=== PATIENT | male | born 1990 | race Caucasian/White ===

== ENCOUNTER 2022-07-06 09:29 | Emergency (ER) | payer SELFPAY ==
[2022-07-06 09:51] VITALS: BP 157/91; PULSE 70; RESP 18; TEMP 36.8; O2SAT 100; BMI 32.5
[2022-07-06] MEDS: Lidocaine HCl 2% PF/Epi 1:200 20 ML VIAL INFILTRATI (10:40)
[2022-07-06] MEDS: LORazepam 1 MG TABLET PO (11:07)
--- NOTE | 2022-07-06 12:34 | ED.WOUNDLAC ---
HPI - Wound/Laceration General Chief Complaint: Wound/Laceration Stated Complaint: lip laceration non work related Time Seen by Provider: 07/06/22 09:46 History of Present Illness HPI narrative: Patient complains of both upper and lower lip lacerations when he was hit with a hockey puck, he has no loose teeth he was not knocked unconscious he has no headache no altered mental status no confusion no vomiting no dizziness Related Data Previous Rx's Medication Instructions Recorded ibuprofen 600 mg tablet 600 mg PO Q6H PRN pain #20 tabs 07/06/22 oxycodone 5 mg tablet 5 mg PO Q6H PRN pain #7 tabs 07/06/22 Allergies Allergy/AdvReac Type Severity Reaction Status Date / Time No Known Allergies Allergy Verified 07/06/22 10:36 Review of Systems Review of Systems: Positive for upper and lower lip lacerations negatives are no headache no loss of consciousness no retrograde amnesia no confusion no dizziness he was not dazed no nausea no vision changes no loose teeth no vision changes no neck pain no chest pain no extremity pains Yes all other systems are reviewed and are negative FORMERLY [facility], [facility]–1983 Past Medical History Source: nursing notes reviewed Social History Social History Advance Directives: No Advance Directives Information Provided: No Physical Exam Vital Signs: Vital Signs: Last Vital Signs Temp 98.2 F 07/06/22 09:51 Pulse 70 07/06/22 09:51 Resp 18 07/06/22 09:51 BP 157/91 H 07/06/22 09:51 Pulse Ox 100 07/06/22 09:51 O2 Del Method 07/06/22 09:51 BMI result Body Mass Index 32.5 General appearance is no acute distress The scalp is atraumatic no abrasions contusions or hematomas or deformities No raccoon eyes no Egan signs The face no tenderness over any bone The upper lip and lower lip on the left side the upper lip has a 1 cm laceration extending from the vermilion border to the inside of the lip The lower lip in line with the upper lip laceration has a through and through 1 cm through the vermilion border laceration No loose teeth were palpated Neck is supple nontender Respiratory no distress Extremities for range of motion x4 Neuro no focal deficits, gait and balance are normal, interaction expression and comprehension are normal Course Course Course Narrative: Procedure note for sutures of upper and lower lip both lacerations were cleansed and irrigated with water Both lacerations were provided anesthesia with 3 cc to the upper lip and 3 cc to the lower lip Upper lip laceration was done with 5 0 absorbable suture with 1 internal suture and then other absorbable sutures with good closure Lower lip same thing was all done with 5 0 absorbable sutures 1 was placed on the inside the others were used to close the mucosa and the surface of the lip up to the vermilion border Patient remained comfortable and stable although he was given on Ativan as he was anxious about the procedure and he was discharged Discharge Plan Discharge Clinical Impression: Laceration of lip Patient Disposition: Home, Self-Care Additional Instructions: The stitches are all absorbable stitches into not need to be removed, they will fall out on their own usually within a week Return any time for redness swelling any sign of infection Prescriptions: New oxycodone 5 mg tablet 5 mg PO Q6H PRN (Reason: pain) Qty: 7 0RF Rx Instructions: Partial Fill upon patient request. ibuprofen 600 mg tablet 600 mg PO Q6H PRN (Reason: pain) Qty: 20 0RF Stand Alone Forms: Work/School Release Interventions: ED Discharge Assessment Last Done: 07/06/22 12:43 Discharge Date/Time: 07/06/22 12:44
== END 2022-07-06 12:44 | disposition home or self-care (01) ==
PROVIDERS: Emergency Provider Emergency Medicine
DX: S01.511A Laceration without foreign body of lip, initial encounter (principal); W21.220A Struck by ice hockey puck, initial encounter; Y93.22 Activity, ice hockey; Y92.330 Ice skating rink (indoor) (outdoor) as the place of occurrence of the external cause; Y99.9 Unspecified external cause status
CPT/HCPCS: 12011; 99283